=== PATIENT | female | born 1960 | race Two or more races ===

== ENCOUNTER 2019-05-02 15:38 | Emergency (ER) | payer MEDICAID, OTHER ==
[~2019-05-02] VITALS: Ht 157.5 cm; Wt 81.9 kg
[2019-05-02 16:40] VITALS: BP 111/79
--- NOTE | 2019-05-02 16:40 | NUR ---
PT TO ED AFTER [facility]GL[facility] LAST WEEK. LEFT KNEE AND CALF APPEAR EDEMATOUS AND LARGER THAN RIGHT. CMS INTACT. NO REDNESS OR STREAKING. PT ALSO STATES RASH TO ANTERIOR GROIN. PT CONNECTED TO MONITORS. VSS. AWAITING EDMD ASSESSMENT.
--- NOTE | 2019-05-02 17:07 | NUR ---
REPORT TO SABINA FORDE. PT REATING IN ROOM. VSS. NO NEEDS EXPRESSED. AWAITING EDMD ASSESSMENT.
== END 2019-05-02 19:08 | disposition home or self-care (01) ==
LOC: ED 19:01
DX: M17.12 Unilateral primary osteoarthritis, left knee (principal); L73.9 Follicular disorder, unspecified
CPT/HCPCS: 99283